=== PATIENT | female | born 1980 | race Caucasian/White ===

== ENCOUNTER 2019-04-17 09:51 | Emergency (ER) | payer BC, SELFPAY ==
--- NOTE | ~2019-04-17 | XR_ITS ---
EXAMINATION: XR hand RT min 3V DATE: 04/17/2019 10:18 INDICATION: Possible foreign body at the right hand TECHNIQUE: Posteroanterior, oblique and lateral views of the right hand were obtained. COMPARISON: None. FINDINGS: Alignment is normal. No acute fracture. Prominent ossicle near the tip of the ulnar styloid process w hich could represent a degenerative loose body, chronic nonunited avulsion fracture fragment or heter otopic ossification related to old trauma. Joint spaces are normal. Soft tissues are unremarkable. No radiopaque foreign bodies. Specifically no catheter fragments identified at the dorsum of the hand. IMPRESSION: 1. No radiopaque foreign bodies or acute osseous abnormality. Reviewed, dictated and finalized at location A. [employer]
[2019-04-17 10:02] VITALS: BP 139/89; PULSE 96; RESP 18; TEMP 36.8; O2SAT 100
--- NOTE | 2019-04-17 11:14 | ED.UPPEXIN ---
HPI - Extremity Injury (Upper) General Chief Complaint: Extremity Injury, Upper Stated Complaint: Right Hand Pain Time Seen by Provider: 04/17/19 11:15 Source: patient Mode of arrival: ambulatory Limitations: no limitations History of Present Illness HPI narrative: 38-year-old female who presents to [facility] care with complaints that she had an IV to her right hand in January and it came out and has had hardness to the tissue at that vein site since in ulnar side of anterior hand. Patient states that she saw her PCP and was told it is phelbitis. Patient here today stating that she wants xray done to be sure there is not something in there.Patient states that she has some discomfort aching discomfort rates it a 2/10 at rest but will increase to 6/10 with movement. Patient states that she has applied warm compresses to area with no improvement. complaint: injury to: right and hand Onset (ago): month(s) (February 08-2018 was in hospital) Other injuries: none Handedness: right Place: other (hospital) Severity: mild Severity scale (1-10): 2 Relieving factors: none Exacerbating factors: movement of extremity (right hand) Context: other (from IV) Associated symptoms: denies other symptoms Treatments prior to arrival: other (warm compresses) Related Data Allergies Allergy/AdvReac Type Severity Reaction Status Date / Time No Known Allergies Allergy Mild Verified 04/17/19 10:17 Review of Systems Review of Systems: All systems reviewed & are unremarkable except as noted in HPI and below Constitutional: Constitutional: Reports as per HPI and Reports no additional constitutional complaints Comments: firm tissue to vein located in anterior right hand ulnar side Eyes: Eyes: Reports as per HPI and Reports no additional eye complaints ENT: Reports system reviewed and no additional complaints, except as documented and Reports as per HPI Cardiovascular: Cardiovascular: Reports as per HPI and Reports no additional cardiovascular complaints Respiratory: Respiratory: Reports as per HPI and Reports no additional respiratory complaints Gastrointestinal: Gastrointestinal: Reports as per HPI and Reports no additional gastrointestinal complaints Comments: has crohns and past history of cholecystectomy with ERCP in January in which she developed pancreatitis after procedure. Genitourinary: Genitourinary: Reports no additional female genitourinary complaints and Reports as per HPI Musculoskeletal: Musculoskeletal: Reports no additional musculoskeletal complaints and Reports as per HPI Integumentary/Breasts: Skin/Breast: Reports system reviewed and no additional complaints, except as docu and Reports as per HPI Neurologic: Reports system reviewed and no additional complaints, except as documented and Reports as per HPI Psychiatric: Psychiatric: Reports no additional psychiatric complaints and Reports as per HPI Endocrine: Endocrine: Reports no additional endocrine complaints and Reports as per HPI Hematologic/Lymphatic: Hematologic/Lymphatic: Reports no additional hematologic/lymphatic complaints and Reports as per HPI Allergic/Immunologic: Allergic/Immunologic: Reports no additional allergic/immunologic complaints and Reports as per HPI [facility] Past Medical History Medical History (Updated 04/21/19 @ 15:21 by Aparna Torrez NP) Crohn's disease Fracture of right hand Pancreatitis Surgical History Surgical History (Updated 04/21/19 @ 15:21 by Aparna Torrez NP) H/O section History of cholecystectomy History of ERCP Hx of tonsillectomy Social History Social History (Updated 04/21/19 @ 15:21 by Aparna Torrez NP) Smoking status: Never smoker Living arrangements: with family Gender identity (if verbalized by the patient): Female Comments At time of signature, agree with nursing past medical, surgical, social and family history. There is no relevant family history pertinent to the presenting complaint
== END 2019-04-17 11:34 | disposition home or self-care (01) ==
PROVIDERS: Emergency Provider Registered Nurse
DX: M79.9 Soft tissue disorder, unspecified (principal); L08.9 Local infection of the skin and subcutaneous tissue, unspecified; K50.90 Crohn's disease, unspecified, without complications
CPT/HCPCS: 73130; 99213; G0463